=== PATIENT | female | born 1960 | race Caucasian/White ===

== ENCOUNTER → 2018-05-30 19:09 | Outpatient (CLI) | payer MEDICARE ==
[2013-08-03 06:00] VITALS: BMI 48.1
[~2018-05-30 19:09] MED LIST: AMBIEN10 MG PO; ARMOUR THYROID30 MG PO; EVOXAC30 MG PO; LYRICA150 MG PO; MYRBETRIG PO; NEXIUM40 MG PO; NORCO 10/325 TA1 TA1 PO; PHENERGAN25 M1 PO; PLAQUENIL200 MG PO; PROMETRIUM100 MG PO; RESTASIS EYE DR30 EA EACH EYE; STRATTERA80 MG PO; SYMBICORT 80-10.2 GM INH; VITAMIN D2000 UNIT PO; ZANAFLEX4 MG PO; ZANTAC150 MG PO; ZESTORETIC 10/11 TAB PO; ZOLOFT100 MG PO
== END | disposition home or self-care (01) ==
LOC: D.MAMMO 11:15
DX: Z12.31 Encounter for screening mammogram for malignant neoplasm of breast (principal)

== ENCOUNTER 2019-12-17 12:20 | Inpatient (IN) | payer MEDICARE ==
[~2019-12-17] VITALS: Ht 160 cm; Wt 120.2 kg
[2020-02-12] MEDS ORDERED: PEPCID AC20 MG PO (15:42)
[2020-02-12] MEDS ORDERED: AMBIEN10 MG PO (15:42)
[2020-02-12] MEDS ORDERED: ZANAFLEX4 MG PO (15:42)
[2020-02-12] MEDS ORDERED: HYDROXYCHLOROQ200 MG PO (15:43)
[2020-02-12] MEDS ORDERED: LISINOPRIL-HCT1 EAC4 PO (15:43)
[2020-02-12] MEDS ORDERED: FOLATE0.4 MG PO (15:43)
[2020-02-12] MEDS ORDERED: BENTYL 20 MG TA20 MG PO (15:44)
[2020-02-12] MEDS ORDERED: EVOXAC30 MG PO (15:44)
[2020-02-12] MEDS ORDERED: PROTONIX40 MG PO (15:44)
[2020-02-12] MEDS ORDERED: HYDROCODON-ACE1 EA10 PO (15:45)
[2020-02-12] MEDS ORDERED: CALTRATE+D3 PL1 EACH PO (15:46)
[2020-02-12] MEDS ORDERED: VITAMIN B-121000 MCG PO (15:46)
[2020-02-12] MEDS ORDERED: KLONOPIN1 MG PO (15:49)
[2020-02-13 11:50] LABS: ANION GAP 9.8 mmol/L (8-16); CALCIUM 9.5 mg/dL (8.5-10.1); CARBON DIOXIDE 31.7 mmol/L (21.0-32.0); CREATININE - SERUM 1.6 mg/dL (0.6-1.3); POTASSIUM - SERUM 3.5 mmol/L (3.5-5.1)
[2020-02-13 12:00] LABS: BILIRUBIN NEGATIVE (NEGATIVE); GLUCOSE NEGATIVE (NEGATIVE); KETONE NEGATIVE (NEGATIVE); NITRITE NEGATIVE (NEGATIVE); UROBILINOGEN NORMAL (NORMAL)
--- NOTE | 2020-02-13 12:08 | NUR ---
T- 98.0 RR- 16 HR- 74 POX- 94% BP RA- 134/71
[2020-02-13 12:11] LABS: APTT 31.1 SECONDS (22.8-39.4); INR 0.89 (0.85-1.17); PROTIME 12.1 SECONDS (11.6-15.0)
[2020-02-13 12:17] LABS: BASOPHILS 0.5 % (0-2); EOSINOPHILS 1.3 % (0-7); HEMATOCRIT 34.9 % (36.0-48.0); HEMOGLOBIN 10.6 g/dL (12-16); IMMATURE GRANULOCYTES 0.2 % (0-5); LYMPHOCYTES 20.9 % (15-50); MCH 24.9 pg (26.0-34.0); MCHC 30.4 g/dL (31.0-37.0); MCV 81.9 fL (80.0-100.0); MEAN PLATELET VOLUME 9.4 fL (7.4-10.4); NEUTROPHILS 70.1 % (40-80); PLATELET COUNT 363 10x3/uL (130-400); RBC 4.26 10x6/uL (4.00-5.40); RDW 15.5 % (11.5-14.5); WBC 9.5 10x3/uL (4.8-10.8)
[2020-02-19] VITALS (12 sets, daily range): BP systolic 117–150; BP diastolic 56–86; BMI 47.0
[2020-02-19] MEDS ORDERED: PEPCID AC20 MG PO (08:08)
[2020-02-19] MEDS ORDERED: LISINOPRIL-HCT1 EAC4 PO (08:09)
[2020-02-19] MEDS ORDERED: CALTRATE PO (08:10)
[2020-02-19] MEDS ORDERED: MIRALAX17 GM PO (08:12)
--- NOTE | 2020-02-19 10:23 | NUR ---
PLASMA BLADE AND AQUAMANTYS USED. CAUTERY PAD PLACED ON RIGHT THIGH. LOT#[id number] EXP. 04/30/2021. PLASMA BLADE ON SETTING 6/8. AQUAMANTYS SETTING ON 170.
--- NOTE | 2020-02-19 13:00 | NUR ---
PT RECEIVED FROM RECOVERY TO ROOM 1211 VIA BED. ALERT AND ORIENTED. RESP EVEN AND UNLABORED. O2 @ 2L NC IN PLACE. PAIN REPORTED 5/10 AT THIS TIME. IV TO RIGHT HAND WITH 1/2 NS @ 50ML/HR INFUSING VIA PUMP. SITE WITHOUT REDNESS OR EDEMA. PREVENA DRESSING TO LEFT LOWER EXTREMITY INTACT AND TO SUCTIONING. ORIENTED TO BED, CL AND ROOM. DENIES QUESTIONS OR FURTHER NEEDS AT THIS TIME. BED ALARM ON. CL WITHIN REACH. ENCOURAGED TO CALL WITH NEEDS. CONTINUE POC
--- NOTE | 2020-02-19 19:38 | NUR ---
PATIENT RESTING IN BED WITH EYES CLOSED AND NO S/S OF DISTRESS. AT BEDSIDE AND DENIES NEEDS AT THIS TIME. BED IN LOWEST POSITION, CALL LIGHT WITHIN REACH, AND BED ALARM ON. WILL CONTINUE TO MONITOR.
--- NOTE | 2020-02-19 21:51 | NUR ---
ASSISTED PATIENT TO AND FROM RESTROOM. PATIENT VOIDED
--- NOTE | 2020-02-20 00:20 | NUR ---
ADMINISTERED MEDS PER ORDERS. PATIENT DENIES OTHER NEEDS. ENCOURAGED TO CALL, WILL CONTINUE TO MONITOR.
--- NOTE | 2020-02-20 05:10 | NUR ---
PLACED PATIENT ON CPM TO LEFT KNEE
--- NOTE | 2020-02-20 07:29 | OP ---
PATIENT NAME: MARTINA CRANE JANUARY MEDICAL RECORD: [id number] :58 LOCATION:D.M3 D.1211 ADMISSION DATE:02/19/20 SURGEON: LUIS ENRIQUE MCKEON DO DATE OF OPERATION: 02/19/2020 PROCEDURE PERFORMED: Left total knee arthroplasty. PREOPERATIVE DIAGNOSIS: Left knee osteoarthritis. POSTOPERATIVE DIAGNOSIS: Left knee osteoarthritis. INDICATIONS: Ms. Crane is a 59-year-old female who has had left knee pain for quite some time. She started collapse into valgus deformity. She has tried all manner of nonoperative treatments including bracing and injections to no avail. She wants something done surgically. She is tired of it affecting her activities of daily living. She is aware of the risks of the procedure including infection, bleeding, damage to nerves or vessels, need for further surgery, continued pain, loss of motion, failure of implants and blood clots, and even . She signed the consent. SURGEON: Luis Enrique Mckeon DO DESCRIPTION OF PROCEDURE: The patient was taken to the operative suite after given a block by anesthesia in the preoperative area, given 2 grams of Ancef, 80 mg of gentamicin, and a gram of TXA. She was then sedated and LMA was placed. The left lower extremity was then prepped and draped in sterile fashion. Timeout was performed, everyone was in agreement with the correct side, site, patient and procedure. I then marked out an anterior incision, covered in Ioban and made the incision down to the capsule, I did it with fresh 10 blade in medial parapatellar approach and everted the patella and milled it down and then took out the ACL and part of the fat pad. I then flexed the knee up and entered the intramedullary canal and cut the distal femur through the distal femur guide and the proximal tibia was exposed and the menisci were removed and then I off the lateral side due to the valgus deformity, cut the proximal tibia, removed the excess bone for the knee to extension and removed any meniscus that remained. I then put in a 10 extension block, it fit very well. I then flexed up the knee. I measured the femur to be 62.5. A 62.5, 4-in-1 cutting block was then put on and jaylyn wing to ensure no notching and then made the cut and then removed the bone, put on the trial and floated in the tibia with poly and marked the rotation. I then drilled for the patella and lug holes in the femur and exposed the tibia and reamed and punched it, put extra holes in the tibia for the cement mantle. Cement was then mixed, placed in the tibia and on the implant. The implant was impacted into place. Extra cement was removed and then the femur was impacted on and the 10 poly was put in between and brought to the knee into extension. The patella was cleaned off and then cement was put in the patella and on the implant squeezed into place. Excess cement was removed. Once that was completed, a 10% povidone iodine with 500 mL normal saline solution was placed into the knee. The knee was set for 3 minutes. This was then irrigated out with over a liter of normal saline. Then, cement had dried and I trialed the 12 poly, 12 poly fit very well. Decided to go with that one and it was 12, anterior stabilized and then put the locking pin in. I then irrigated one more time and put in Carmen powder and vancomycin and tobramycin powder and closed the capsule with #1 Pops, [id number]. This was also done by Amber Sena, licensed and certified midwife. He also did the skin with 2-0 Vicryl in inverted interrupted fashion and a ZipLine was placed on the knee OPERATIVE REPORT [id number] MARTINA CRANE DANE and then covered with a Prevena Restore and she was then awakened and taken to recovery in stable condition. BLOOD LOSS: Approximately 300 mL. COMPLICATIONS: None. TRANSINT:[id number] Voice Confirmation ID: [id number] DOCUMENT ID: [id number] LUIS ENRIQUE MCKEON DO at 0729 CC: [id number] DICTATION DATE: 02/19/20 1119 TOURIST ADVISER: 02/19/20 1337 ADM IN [facility] [id number] [place] [address]
[2020-02-20 07:47] LABS: HEMATOCRIT 29.5 % (36.0-48.0); HEMOGLOBIN 9.1 g/dL (12-16); LYMPHOCYTES 9.6 % (15-50); MCH 25.1 pg (26.0-34.0); MCHC 30.8 g/dL (31.0-37.0); MCV 81.5 fL (80.0-100.0); MEAN PLATELET VOLUME 9.7 fL (7.4-10.4); NEUTROPHILS 79.9 % (40-80); PLATELET COUNT 267 10x3/uL (130-400); RBC 3.62 10x6/uL (4.00-5.40); RDW 15.5 % (11.5-14.5); WBC 11.3 10x3/uL (4.8-10.8)
[2020-02-20 07:54] VITALS: BP 101/48
[2020-02-20 07:59] LABS: ANION GAP 11.4 mmol/L (8-16); CALCIUM 8.2 mg/dL (8.5-10.1); CARBON DIOXIDE 26.5 mmol/L (21.0-32.0); CREATININE - SERUM 1.6 mg/dL (0.6-1.3); MAGNESIUM - SERUM 1.7 mg/dL (1.8-2.4); POTASSIUM - SERUM 3.9 mmol/L (3.5-5.1)
[2020-02-20 13:46] VITALS: BP 104/39
--- NOTE | 2020-02-20 14:30 | MORECARE ---
CASE MANAGEMENT DISCHARGE SUMMARY PATIENT: MARTINA CRANE UNIT: [id number] ADM DATE: 02/19/20 AGE: 59 : 58 SEX: F ROOM/BED: D.1211 AUTHOR: HAYDEN FARLEY PHYSICIAN: REFERRING PHYSICIAN: LISET MCKEON DO DATE OF SERVICE: 02/20/20 Discharge Plan Patient Name: MARTINA CRANE Facility: [facility]:[place] : 1960 Planned Disposition: Home Health Service Anticipated Discharge Date: 02/22/20 Discharge Date: Expected LOS: 3 Initial Reviewer: [email or web address] Initial Review Date: 02/20/2020 Generated: 02/20/20 3:29 pm Patient Name: MARTINA CRANE Page [id number] at 1430 All edits/amendments must be made on the electronic document DICTATION DATE: 02/20/201428 DIESEL PILE DRIVER OPERATOR: VIRGILIO 02/20/20 142 RPT#: [id number] DC DATE: STATUS: ADM IN [facility] [address] [place] [address] END OF REPORT
--- NOTE | 2020-02-20 14:38 | MORECARE ---
CASE MANAGEMENT DISCHARGE SUMMARY PATIENT: MARTINA CRANE UNIT: [id number] ADM DATE: 02/19/20 AGE: 59 : 58 SEX: F ROOM/BED: D.1211 AUTHOR: HAYDEN FARLEY PHYSICIAN: REFERRING PHYSICIAN: LISET MCKEON DO DATE OF SERVICE: 02/20/20 Discharge Plan Patient Name: MARTINA CRANE Facility: [facility]:[place] : 1960 Planned Disposition: Home Health Service Anticipated Discharge Date: 02/22/20 Discharge Date: Expected LOS: 3 Initial Reviewer: [email or web address] Initial Review Date: 02/20/2020 Generated: 02/20/20 3:38 pm Comments DCP- Discharge Planning Updated by [email or web address]: Mariah Connell on 02/20/20 1:[address] Patient Name: MARTINA CRANE Admission Status: Urgent Accout number: [id number] Admission Date: 02-19-2020 : 1960 Admission Diagnosis: Attending: LISET MCKEON Current LOS: 1 Anticipated DC Date: 02-22-2020 Planned Disposition: Home Health Service Primary Insurance: MEDICARE A & B Discharge Planning Comments: After obtaining verbal consent, CM met with patient and spouse to discuss discharge planning / needs. Patient states she is going to discharge to home Tuesday with home health services. States she has 8 steps and does not want to go to outpatient therapy. Denies any other discharge planning / needs. States home environment is safe. States her will transport her home upon hospital DC. ADAMS explained and signed for [facility] [facility] and [facility]. DC IMM explained and signed. CM will continue to follow and assist as needed with discharge planning / needs. Fishing Line Winding Machine Operator: Mariah Connell DCPIA - Discharge Planning Initial Assessment Updated by [email or web address]: Mariah Connell on 02/20/20 2:30 pm * Is the patient Alert and Oriented? Yes * How many steps to enter\exit or inside your home? 8 w/rails * PCP Kem * Pharmacy [facility] * Preadmission Environment Home with Family * ADLs Independent * Equipment Bedside Commode Rolling Walker * Other Equipment CPM and Cold Therapy Unit * List name and contact numbers for known caregivers / representatives who currently or will assist patient after discharge: Charles Crane, Spouse, * Verbal permission to speak to the caregivers and representatives has been obtained from the patient. Yes * Community resources currently utilized None * Please name any agencies selected above. [facility] * Additional services required to return to the preadmission environment? Yes * Can the patient safely return to the preadmission environment? Yes * Has this patient been hospitalized within the prior 30 days at any hospital? No Coverage Notice Reviewer: ROSETTE Connell Notice Issued Date-Time: 02/20/2020 14:00 Notice Type: IM Discharge Notice Notice Delivered To: Patient Relationship to Patient: Self Chin Strap Sewer Name: Delivery Method: HAND - Hand Delivered Elaina Days: Prior Verbal Notification: Recipient Understood Notice: Yes Recipient Signature: Yes Med Rec Note Co-signed by Attending: Coverage Notice Comment: Reviewer: ROSETTE Connell Notice Issued Date-Time: 02/20/2020 14:00 Notice Type: Patient Choice Letter Notice Delivered To: Patient Relationship to Patient: Self Chin Strap Sewer Name: Delivery Method: HAND - Hand Delivered Elaina Days: Prior Verbal Notification: Recipient Understood Notice: Yes Recipient Signature: Yes Med Rec Note Co-signed by Attending: Coverage Notice Comment: Last DP export: 02/20/20 1:30 p Patient Name: MARTINA CRANE Page [id number] at 1438 All edits/amendments must be made on the electronic document DICTATION DATE: 02/20/208 FACILITY EXAMINER: VIRGILIO 02/20/20 1438 RPT#: [id number] DC DATE: STATUS: ADM IN [facility] [address] [place] [address] END OF REPORT
--- NOTE | 2020-02-20 14:46 | MORECARE ---
CASE MANAGEMENT DISCHARGE SUMMARY PATIENT: MARTINA CRANE UNIT: [id number] ADM DATE: 02/19/20 AGE: 59 : 58 SEX: F ROOM/BED: D.1211 AUTHOR: HAYDEN FARLEY PHYSICIAN: REFERRING PHYSICIAN: LISET MCKEON DO DATE OF SERVICE: 02/20/20 Discharge Plan Patient Name: MARTINA CRANE Facility: [facility]:[place] : 1960 Planned Disposition: Home Health Service Anticipated Discharge Date: 02/22/20 Discharge Date: Expected LOS: 3 Initial Reviewer: [email or web address] Initial Review Date: 02/20/2020 Generated: 02/20/20 3:46 pm Comments DCP- Discharge Planning Updated by [email or web address]: Mariah Connell on 02/20/20 1:[address] Patient Name: MARTINA CRANE Admission Status: Urgent Accout number: [id number] Admission Date: 02-19-2020 : 1960 Admission Diagnosis: Attending: LISET MCKEON Current LOS: 1 Anticipated DC Date: 02-22-2020 Planned Disposition: Home Health Service Primary Insurance: MEDICARE A & B Discharge Planning Comments: After obtaining verbal consent, CM met with patient and spouse to discuss discharge planning / needs. Patient states she is going to discharge to home Tuesday with home health services. States she has 8 steps and does not want to go to outpatient therapy. Denies any other discharge planning / needs. States home environment is safe. States her will transport her home upon hospital DC. ADAMS explained and signed for [facility] [facility] and [facility]. DC IMM explained and signed. CM will continue to follow and assist as needed with discharge planning / needs. Bead Cutter: Mariah Connell DCPIA - Discharge Planning Initial Assessment Updated by [email or web address]: Mariah Connell on 02/20/20 2:30 pm * Is the patient Alert and Oriented? Yes * How many steps to enter\exit or inside your home? 8 w/rails * PCP Kem * Pharmacy [facility] * Preadmission Environment Home with Family * ADLs Independent * Equipment Bedside Commode Rolling Walker * Other Equipment CPM and Cold Therapy Unit * List name and contact numbers for known caregivers / representatives who currently or will assist patient after discharge: Charles Crane, Spouse, * Verbal permission to speak to the caregivers and representatives has been obtained from the patient. Yes * Community resources currently utilized None * Please name any agencies selected above. [facility] * Additional services required to return to the preadmission environment? Yes * Can the patient safely return to the preadmission environment? Yes * Has this patient been hospitalized within the prior 30 days at any hospital? No External Providers External Provider: Toopher Next Contact Date: Service Request Date: Service Type: Resolution: Reviewer: Comments: Coverage Notice Reviewer: [email or web address] Connell Notice Issued Date-Time: 02/20/2020 14:00 Notice Type: IM Discharge Notice Notice Delivered To: Patient Relationship to Patient: Self Arbor Press Operator Name: Delivery Method: HAND - Hand Delivered Elaina Days: Prior Verbal Notification: Recipient Understood Notice: Yes Recipient Signature: Yes Med Rec Note Co-signed by Attending: Coverage Notice Comment: Reviewer: [id number] Connell Notice Issued Date-Time: 02/20/2020 14:00 Notice Type: Patient Choice Letter Notice Delivered To: Patient Relationship to Patient: Self Arbor Press Operator Name: Delivery Method: HAND - Hand Delivered Elaina Days: Prior Verbal Notification: Recipient Understood Notice: Yes Recipient Signature: Yes Med Rec Note Co-signed by Attending: Coverage Notice Comment: Last DP export: 02/20/20 1:38 p Patient Name: MARTINA CRANE Page [phone] at 1446 All edits/amendments must be made on the electronic document DICTATION DATE: 02/20/20 1446 [facility] TECHNICIAN: VIRGILIO 02/20/20 1446 RPT#: [id number] DC DATE: STATUS: ADM IN [facility] [address] [place] [address] END OF REPORT
--- NOTE | 2020-02-20 14:54 | MORECARE ---
CASE MANAGEMENT DISCHARGE SUMMARY PATIENT: MARTINA CRANE UNIT: [id number] ADM DATE: 02/19/20 AGE: 59 : 58 SEX: F ROOM/BED: D.1211 AUTHOR: HAYDEN FARLEY PHYSICIAN: REFERRING PHYSICIAN: LISET MCKEON DO DATE OF SERVICE: 02/20/20 Discharge Plan Patient Name: MARTINA CRANE Facility: [facility]:[place] : 1960 Planned Disposition: Home Health Service Anticipated Discharge Date: 02/22/20 Discharge Date: Expected LOS: 3 Initial Reviewer: [id number] Initial Review Date: 02/20/2020 Generated: 02/20/20 3:54 pm Comments DCP- Discharge Planning Updated by [email or web address]: Mariah Connell on 02/20/20 1:[address] Patient Name: MARTINA CRANE Admission Status: Urgent Accout number: [id number] Admission Date: 02-19-2020 : 1960 Admission Diagnosis: Attending: LISET MCKEON Current LOS: 1 Anticipated DC Date: 02-22-2020 Planned Disposition: Home Health Service Primary Insurance: MEDICARE A & B Discharge Planning Comments: After obtaining verbal consent, CM met with patient and spouse to discuss discharge planning / needs. Patient states she is going to discharge to home Tuesday with home health services. States she has 8 steps and does not want to go to outpatient therapy. Denies any other discharge planning / needs. States home environment is safe. States her will transport her home upon hospital DC. ADAMS explained and signed for [facility] and [facility]. DC IMM explained and signed. CM will continue to follow and assist as needed with discharge planning / needs. Called Dereck with [facility] with referral. Informed of anticipated DC from hospital Tuesday. Will need home health admission Tuesday. Dereck stated the patient will be admitted to home health Tuesday. Faxed records as requested. Theatre Instructor: Mariah Connell DCPIA - Discharge Planning Initial Assessment Updated by [email or web address]: Mariah Connell on 02/20/20 2:30 pm * Is the patient Alert and Oriented? Yes * How many steps to enter\exit or inside your home? 8 w/rails * PCP Kem * Pharmacy [facility] * Preadmission Environment Home with Family * ADLs Independent * Equipment Bedside Commode Rolling Walker * Other Equipment CPM and Cold Therapy Unit * List name and contact numbers for known caregivers / representatives who currently or will assist patient after discharge: Charles Crane, Spouse, * Verbal permission to speak to the caregivers and representatives has been obtained from the patient. Yes * Community resources currently utilized None * Please name any agencies selected above. [facility] * Additional services required to return to the preadmission environment? Yes * Can the patient safely return to the preadmission environment? Yes * Has this patient been hospitalized within the prior 30 days at any hospital? No Coverage Notice Reviewer: ROSETTE Connell Notice Issued Date-Time: 02/20/2020 14:00 Notice Type: IM Discharge Notice Notice Delivered To: Patient Relationship to Patient: Self Search Engine Optimizer Name: Delivery Method: HAND - Hand Delivered Elaina Days: Prior Verbal Notification: Recipient Understood Notice: Yes Recipient Signature: Yes Med Rec Note Co-signed by Attending: Coverage Notice Comment: Reviewer: ROSETTE Connell Notice Issued Date-Time: 02/20/2020 14:00 Notice Type: Patient Choice Letter Notice Delivered To: Patient Relationship to Patient: Self Search Engine Optimizer Name: Delivery Method: HAND - Hand Delivered Elaina Days: Prior Verbal Notification: Recipient Understood Notice: Yes Recipient Signature: Yes Med Rec Note Co-signed by Attending: Coverage Notice Comment: Last DP export: 02/20/20 1:46 p Patient Name: MARTINA CRANE Page [phone] at 1454 All edits/amendments must be made on the electronic document DICTATION DATE: 02/20/20 1454 HERBOLOGIST: VIRGILIO 02/20/20 1454 RPT#: [id number] DC DATE: STATUS: ADM IN [facility] [address] [place] [address] END OF REPORT
[2020-02-20 20:00] VITALS: BP 131/57
--- NOTE | 2020-02-20 22:16 | NUR ---
ALERT RESTING IN BED CPM IN USE, REPORTS SOME PAIN TO KNEE BUT NOT TO BAD, SEE SHIFT ASSESSMENT, WOUND VAC IN USE TO LEFT KNEE, CALL LIGHT IN REACH
[2020-02-21] VITALS (7 sets, daily range): BP systolic 93–162; BP diastolic 39–72
[2020-02-21 05:11] LABS: HEMATOCRIT 25.7 % (36.0-48.0); LYMPHOCYTES 19.4 % (15-50); MCHC 31.1 g/dL (31.0-37.0); MCV 80.3 fL (80.0-100.0); MEAN PLATELET VOLUME 9.7 fL (7.4-10.4); NEUTROPHILS 68.5 % (40-80); PLATELET COUNT 256 10x3/uL (130-400); RDW 15.6 % (11.5-14.5); WBC 10.7 10x3/uL (4.8-10.8)
[2020-02-21 05:25] LABS: ANION GAP 9.6 mmol/L (8-16); CALCIUM 8.1 mg/dL (8.5-10.1); CARBON DIOXIDE 27.9 mmol/L (21.0-32.0); MAGNESIUM - SERUM 1.8 mg/dL (1.8-2.4); POTASSIUM - SERUM 3.5 mmol/L (3.5-5.1)
[2020-02-21 05:28] LABS: CREATININE - SERUM 2.4 mg/dL (0.6-1.3)
--- NOTE | 2020-02-21 09:38 | NUR ---
PT ALERT X 4. BREATH SOUNDS CLEAR BILAT. IV TO RIGHT HAND, PATENT, DRESSING CDI. SALLY TO LEFT KNEE CDI. PT REPORTING PAIN OF 5/10, BP TOO LOW FOR PAIN MEDICATION AT THIS TIME, WILL CONTINUE TO MONITOR. BED LOW, CALL LIGHT IN REACH. NO OTHER NEEDS AT THIS TIME.
--- NOTE | 2020-02-21 19:27 | NUR ---
DR GAO HERE TO SEE PT INFORMED OF LOW NA AND LOW BP AND DECREASED URINE OUT PUT TODAY, HAS RECIEVED 1 L NS BOLUS AND REPORTS INCREASED URINE OUTPUT SINCE BOLUS, ENCOURAGED PT TO DRINK ENSURE AND LESS JUICE AND NO FREE WATER, ENCOURAGED TO TAKE LITTLE PAIN MEDS POSSIABLE SINCE HAS HAD NO BM SINCE SURGERY, PT AND VERBALIZE UNDERSTANDING, ORDERS RECIEVED TO DC HCTZ, ZESTERIL, AND AMBIEN, AND TO START NS AT 100CC/HR
[2020-02-22 03:15] VITALS: BP 96/50
[2020-02-22 06:03] VITALS: BP 99/55
[2020-02-22 07:03] LABS: HEMATOCRIT 25.7 % (36.0-48.0); HEMOGLOBIN 7.9 g/dL (12-16); MCH 24.7 pg (26.0-34.0); MCHC 30.7 g/dL (31.0-37.0); MCV 80.3 fL (80.0-100.0); MEAN PLATELET VOLUME 9.8 fL (7.4-10.4); NEUTROPHILS 66.1 % (40-80); PLATELET COUNT 265 10x3/uL (130-400); RDW 15.8 % (11.5-14.5); WBC 9.9 10x3/uL (4.8-10.8)
[2020-02-22 07:21] LABS: ANION GAP 10.7 mmol/L (8-16); CALCIUM 8.4 mg/dL (8.5-10.1); CARBON DIOXIDE 26.8 mmol/L (21.0-32.0); CREATININE - SERUM 2.1 mg/dL (0.6-1.3); MAGNESIUM - SERUM 1.8 mg/dL (1.8-2.4); POTASSIUM - SERUM 3.5 mmol/L (3.5-5.1)
--- NOTE | 2020-02-22 07:55 | NUR ---
PATIENT IN BED WITH EYES CLOSED RESTING QUIETLY. CPM ON. WOUND VAC INTACT. IV NTACT. CALL LIGHT WITHIN REACH.
--- NOTE | 2020-02-22 08:09 | NUR ---
CPM OFF/. ASSISTED PATIENT TO BR AT THIS TIME. NO PROBLEMS. STATED IS HAVING PAIN. WILL GIVE PAIN MED WHEN BACK TO BED. VERBALIZED UNDERSTANDING.
[2020-02-22 08:45] VITALS: BP 105/43
--- NOTE | 2020-02-22 08:45 | NUR ---
PATIENT IV LEAKING. REMOVED WITH CATH TIP INTACT. NO COMPLAINTS OR SIGNS OF DISTRESS. PATIENT WANTS TO WAIT TO SEE IF SHE CAN LEAVE IV OUT PER PHYSICIAN BEFORE RESTARTING. CALLL YAT WITHIN REACH.
--- NOTE | 2020-02-22 11:00 | NUR ---
PATIENT SITTING UP IN CHAIR AT THIS TIME. NO COMPLAINTS OR SIGNS OF DISTRESS. WOUND VAC INTACT. CALL LIGHT WITHIN REACH. AMBULATED WITH PT WITH NO PROBLEMS.
[2020-02-22 12:20] VITALS: BP 123/54
--- NOTE | 2020-02-22 12:30 | NUR ---
OK TO LEAVE IV OUT FOR NOW PER NEPHROLOGY. PATIENT NEEDS TO DRINK PLENTY OF FLUIDS. INCREASE SALT INTAKE. PATIENT VERBALIZED UNDERSTANDING.
--- NOTE | 2020-02-22 14:31 | MORECARE ---
CASE MANAGEMENT DISCHARGE SUMMARY PATIENT: MARTINA CRANE UNIT: [id number] ADM DATE: 02/19/20 AGE: 59 : 58 SEX: F ROOM/BED: D.1211 AUTHOR: HAYDEN FARLEY PHYSICIAN: REFERRING PHYSICIAN: LISET MCKEON DO DATE OF SERVICE: 02/22/20 Discharge Plan Patient Name: MARTINA CRANE Facility: [facility]:[place] : 1960 Planned Disposition: Home Health Service Anticipated Discharge Date: 02/22/20 Discharge Date: Expected LOS: 3 Initial Reviewer: [id number] Initial Review Date: 02/20/2020 Generated: 02/22/20 3:31 pm Comments DCP- Discharge Planning Updated by [email or web address]: Mariah Connell on 02/22/20 1:[address] CM called and informed Ray with [employer] that hospital discharge has been moved to Tuesday and need home health admit on Tuesday. Dereck stated he would let the home health agency know. DCP- Discharge Planning Updated by [email or web address]: Mariah Connell on 02/20/20 1:[address] Patient Name: MARTINA CRANE Admission Status: Urgent Accout number: [id number] Admission Date: 02-19-2020 : 1960 Admission Diagnosis: Attending: LISET MCKEON Current LOS: 1 Anticipated DC Date: 02-22-2020 Planned Disposition: Home Health Service Primary Insurance: MEDICARE A & B Discharge Planning Comments: After obtaining verbal consent, CM met with patient and spouse to discuss discharge planning / needs. Patient states she is going to discharge to home Tuesday with home health services. States she has 8 steps and does not want to go to outpatient therapy. Denies any other discharge planning / needs. States home environment is safe. States her will transport her home upon hospital DC. ADAMS explained and signed for [facility] and [facility]. DC IMM explained and signed. CM will continue to follow and assist as needed with discharge planning / needs. Called Ray with [facility] with referral. Informed of anticipated DC from hospital Tuesday. Will need home health admission Tuesday. Dereck stated the patient will be admitted to home health Tuesday. Faxed records as requested. Supervisor Acoustical Tile Carpenters: Mariah Connell DCPIA - Discharge Planning Initial Assessment Updated by [email or web address]: Mariah Connell on 02/20/20 2:30 pm * Is the patient Alert and Oriented? Yes * How many steps to enter\exit or inside your home? 8 w/rails * PCP Kem * Pharmacy [facility] * Preadmission Environment Home with Family * ADLs Independent * Equipment Bedside Commode Rolling Walker * Other Equipment CPM and Cold Therapy Unit * List name and contact numbers for known caregivers / representatives who currently or will assist patient after discharge: Charles Crane, Spouse, * Verbal permission to speak to the caregivers and representatives has been obtained from the patient. Yes * Community resources currently utilized None * Please name any agencies selected above. [facility] * Additional services required to return to the preadmission environment? Yes * Can the patient safely return to the preadmission environment? Yes * Has this patient been hospitalized within the prior 30 days at any hospital? No Coverage Notice Reviewer: [id number] Stone Connell Notice Issued Date-Time: 02/20/2020 14:00 Notice Type: IM Discharge Notice Notice Delivered To: Patient Relationship to Patient: Self Channel Lip Stiffener Insoles Name: Delivery Method: HAND - Hand Delivered Elaina Days: Prior Verbal Notification: Recipient Understood Notice: Yes Recipient Signature: Yes Med Rec Note Co-signed by Attending: Coverage Notice Comment: Reviewer: [email or web address] Stone Connell Notice Issued Date-Time: 02/20/2020 14:00 Notice Type: Patient Choice Letter Notice Delivered To: Patient Relationship to Patient: Self Channel Lip Stiffener Insoles Name: Delivery Method: HAND - Hand Delivered Elaina Days: Prior Verbal Notification: Recipient Understood Notice: Yes Recipient Signature: Yes Med Rec Note Co-signed by Attending: Coverage Notice Comment: Last DP export: 02/20/20 1:54 p Patient Name: MARTINA CRANE Page [phone] at 1431 All edits/amendments must be made on the electronic document DICTATION DATE: 02/22/20 1431 RETAINING ROOM CUTTER: VIRGILIO 02/22/20 1431 RPT#: [id number] [place] DATE: STATUS: ADM IN [facility] [address] [place] [address] END OF REPORT
--- NOTE | 2020-02-22 15:03 | MORECARE ---
CASE MANAGEMENT DISCHARGE SUMMARY PATIENT: MARTINA CRANE UNIT: [id number] ADM DATE: 02/19/20 AGE: 59 : 58 SEX: F ROOM/BED: D.1211 AUTHOR: HAYDEN FARLEY PHYSICIAN: REFERRING PHYSICIAN: LISET MCKEON DO DATE OF SERVICE: 02/22/20 Discharge Plan Patient Name: MARTINA CRANE Facility: [facility]:[place] : 1960 Planned Disposition: Home Health Service Anticipated Discharge Date: 02/22/20 Discharge Date: Expected LOS: 3 Initial Reviewer: [email or web address] Initial Review Date: 02/20/2020 Generated: 02/22/20 4:02 pm Comments DCP- Discharge Planning Updated by [email or web address]: Mariah Connell on 02/22/20 1:[address] CM informed patient that [facility] had been notified of anticipated discharge Tuesday and agency will admit patient to home health Tuesday. Patient verbalized understanding and satisfaction with discharge plans. DC IMM explained and signed copy to chart. DCP- Discharge Planning Updated by [email or web address]: Mariah Connell on 02/22/20 1:[address] CM called and informed Ray with [facility] that hospital discharge has been moved to Tuesday and need home health admit on Tuesday. Ray stated he would let the home health agency know. DCP- Discharge Planning Updated by [email or web address]: Mariah Connell on 02/20/20 1:[address] Patient Name: MARTINA CRANE Admission Status: Urgent Accout number: [id number] Admission Date: 02-19-2020 : 1960 Admission Diagnosis: Attending: LISET MCKEON Current LOS: 1 Anticipated DC Date: 02-22-2020 Planned Disposition: Home Health Service Primary Insurance: MEDICARE A & B Discharge Planning Comments: After obtaining verbal consent, CM met with patient and spouse to discuss discharge planning / needs. Patient states she is going to discharge to home Tuesday with home health services. States she has 8 steps and does not want to go to outpatient therapy. Denies any other discharge planning / needs. States home environment is safe. States her will transport her home upon hospital DC. ADAMS explained and signed for [facility] and [facility]. DC IMM explained and signed. CM will continue to follow and assist as needed with discharge planning / needs. Called Dereck with [facility] with referral. Informed of anticipated DC from hospital Tuesday. Will need home health admission Tuesday. Dereck stated the patient will be admitted to home health Tuesday. Faxed records as requested. Hotel Registration Clerk: Mariah Connell DCPIA - Discharge Planning Initial Assessment Updated by [email or web address]: Mariah Connell on 02/20/20 2:30 pm * Is the patient Alert and Oriented? Yes * How many steps to enter\exit or inside your home? 8 w/rails * PCP Kem * Pharmacy [facility] * Preadmission Environment Home with Family * ADLs Independent * Equipment Bedside Commode Rolling Walker * Other Equipment CPM and Cold Therapy Unit * List name and contact numbers for known caregivers / representatives who currently or will assist patient after discharge: Charles Crane, Spouse, * Verbal permission to speak to the caregivers and representatives has been obtained from the patient. Yes * Community resources currently utilized None * Please name any agencies selected above. [facility] * Additional services required to return to the preadmission environment? Yes * Can the patient safely return to the preadmission environment? Yes * Has this patient been hospitalized within the prior 30 days at any hospital? No Coverage Notice Reviewer: ROSETTE Connell Notice Issued Date-Time: 02/20/2020 14:00 Notice Type: IM Discharge Notice Notice Delivered To: Patient Relationship to Patient: Self Mammography Supervisor Name: Delivery Method: HAND - Hand Delivered Elaina Days: Prior Verbal Notification: Recipient Understood Notice: Yes Recipient Signature: Yes Med Rec Note Co-signed by Attending: Coverage Notice Comment: Reviewer: ROSETTE Connell Notice Issued Date-Time: 02/20/2020 14:00 Notice Type: Patient Choice Letter Notice Delivered To: Patient Relationship to Patient: Self Mammography Supervisor Name: Delivery Method: HAND - Hand Delivered Elaina Days: Prior Verbal Notification: Recipient Understood Notice: Yes Recipient Signature: Yes Med Rec Note Co-signed by Attending: Coverage Notice Comment: Reviewer: ROSETTE Connell Notice Issued Date-Time: 02/22/2020 14:35 Notice Type: IM Discharge Notice Notice Delivered To: Patient Relationship to Patient: Self Mammography Supervisor Name: Delivery Method: HAND - Hand Delivered Elaina Days: Prior Verbal Notification: Recipient Understood Notice: Yes Recipient Signature: Yes Med Rec Note Co-signed by Attending: Coverage Notice Comment: Last DP export: 02/22/20 1:31 p Patient Name: MARTINA CRANE Page [id number] at 1503 All edits/amendments must be made on the electronic document DICTATION DATE: 02/22/201501 ASSISTANT FACILITY MANAGER: VIRGILIO 02/22/20 1502 RPT#: [id number] DC DATE: STATUS: ADM IN [facility] [address] [place] [address] END OF REPORT
[2020-02-22 16:05] VITALS: Ht 160 cm; Wt 120.2 kg
--- NOTE | 2020-02-22 16:18 | NUR ---
REPORT GIVEN TO SHARIFA WASHINGTON. PATIENT TAKEN TO [id number].
[2020-02-22 17:13] VITALS: BP 151/45
--- NOTE | 2020-02-22 20:00 | NUR ---
PATIENT RESTING IN BED WATCHING TV WITH AT BEDSIDE. NO S/S OF ACUTE DISTRESS. NO C/O AT THIS TIME. PATIENT HAS NO IV ACCESS AT THIS TIME. PATIENT LEFT KNEE HAS WOUND VAC TO IT, DRESSING C/D/I. PATIENT HAS CPM. PATIENT IS UP WITH ASSIST AND WALKER TO THE BATHROOM. CALL LIGHT WITHIN REACH. WILL CONTINUE TO MONITOR.
[2020-02-22 20:44] VITALS: BP 116/50
[2020-02-23 00:48] VITALS: BP 121/52
[2020-02-23 04:00] VITALS: BP 118/64
--- NOTE | 2020-02-23 04:35 | NUR ---
I have reviewed this patient and I concur with the Shift Assessment completed by the Licensed Practical Nurse today this shift.
[2020-02-23 06:01] LABS: BASOPHILS 0.3 % (0-2); EOSINOPHILS 1.7 % (0-7); IMMATURE GRANULOCYTES 0.4 % (0-5); LYMPHOCYTES 20.6 % (15-50); MCH 24.7 pg (26.0-34.0); MCHC 30.4 g/dL (31.0-37.0); MCV 81.3 fL (80.0-100.0); MEAN PLATELET VOLUME 9.5 fL (7.4-10.4); MONOCYTES 11.1 % (2-11); NEUTROPHILS 65.9 % (40-80); PLATELET COUNT 267 10x3/uL (130-400); RBC 2.83 10x6/uL (4.00-5.40); RDW 16.2 % (11.5-14.5)
[2020-02-23 07:04] LABS: ALBUMIN 2.3 g/dL (3.4-5.0); ALKALINE PHOSPHATASE 98 U/L (30-120); ALT (SGPT) 12 U/L (10-68); BILIRUBIN - TOTAL 0.38 mg/dL (0.2-1.3); CALC OSMOLALITY 274 mosm/kg (275-300); CALCIUM 8.8 mg/dL (8.5-10.1); CARBON DIOXIDE 27.6 mmol/L (21.0-32.0); CHLORIDE - SERUM 102 mmol/L (98-107); CREATINE KINASE 375 UL (21-215); CREATININE - SERUM 1.6 mg/dL (0.6-1.3); GLUCOSE 99 mg/dL (74-106); LDH 221 U/L (81-234); POTASSIUM - SERUM 3.7 mmol/L (3.5-5.1); PROTEIN - SERUM 5.3 g/dL (6.4-8.2); SODIUM 136 mmol/L (136-145); UREA NITROGEN 21 mg/dL (7-18); eGFR NON AFRICAN AMERICAN 35 mL/min (90-120)
[2020-02-23 07:07] LABS: CKMB 1.9 U/L (0.0-3.6)
[2020-02-23] MEDS ORDERED: ELIQUIS5 MG PO (09:42)
[2020-02-23] MEDS ORDERED: PERCOCET 5-3251 TAB PO (09:42)
[2020-02-23 10:08] VITALS: BP 147/64
--- NOTE | 2020-02-23 10:59 | NUR ---
PT ALERT X 4. BREATH SOUNDS CLEAR BILAT. NO IV ACCESS AT THIS TIME. PT REFUSED MEDICATIONS AT THIS TIME, WILL TAKE HOME MEDS. DISCHARGE PAPERWORK SIGNED, ALL QUESTIONS ANSWERED. CHARI RUSSO'Giuseppe, DRESSING CHANGED PER ORDERS. ESCORTED OUT VIA WHEELCHAIR.
--- NOTE | 2020-02-24 19:07 | MORECARE ---
CASE MANAGEMENT DISCHARGE SUMMARY PATIENT: MARTINA CRANE UNIT: [id number] ADM DATE: 02/19/20 AGE: 59 : 58 SEX: F ROOM/BED: D.8866 AUTHOR: HAYDEN FARLEY PHYSICIAN: REFERRING PHYSICIAN: LISET MCKEON DO DATE OF SERVICE: 02/24/20 Discharge Plan Patient Name: MARTINA CRANE Facility: [facility]:[place] : 1960 Planned Disposition: Home Health Service Anticipated Discharge Date: 02/22/20 Discharge Date: 02/23/2020 Expected LOS: 3 Initial Reviewer: [email or web address] Initial Review Date: 02/20/2020 Generated: 02/24/20 8:06 pm Comments DCP- Discharge Planning Updated by [email or web address]: Mariah Connell on 02/22/20 1:[address] CM informed patient that [facility] had been notified of anticipated discharge Tuesday and agency will admit patient to home health Tuesday. Patient verbalized understanding and satisfaction with discharge plans. DC IMM explained and signed copy to chart. DCP- Discharge Planning Updated by [email or web address]: Mariah Connell on 02/22/20 1:[address] CM called and informed Ray with [facility] that hospital discharge has been moved to Tuesday and need home health admit on Tuesday. Dereck stated he would let the home health agency know. DCP- Discharge Planning Updated by [email or web address]: Mariah Connell on 02/20/20 1:[address] Patient Name: MARTINA CRANE Admission Status: Urgent Accout number: [id number] Admission Date: 02-19-2020 : 1960 Admission Diagnosis: Attending: LISET MCKEON Current LOS: 1 Anticipated DC Date: 02-22-2020 Planned Disposition: Home Health Service Primary Insurance: MEDICARE A & B Discharge Planning Comments: After obtaining verbal consent, CM met with patient and spouse to discuss discharge planning / needs. Patient states she is going to discharge to home Tuesday with home health services. States she has 8 steps and does not want to go to outpatient therapy. Denies any other discharge planning / needs. States home environment is safe. States her will transport her home upon hospital DC. ADAMS explained and signed for [facility] and [facility]. DC IMM explained and signed. CM will continue to follow and assist as needed with discharge planning / needs. Called Dereck with [facility] with referral. Informed of anticipated DC from hospital Tuesday. Will need home health admission Tuesday. Dereck stated the patient will be admitted to home health Tuesday. Faxed records as requested. Multi Site Leasing Consultant: Mariah Connell DCPIA - Discharge Planning Initial Assessment Updated by [email or web address]: Mariah Connell on 02/20/20 2:30 pm * Is the patient Alert and Oriented? Yes * How many steps to enter\exit or inside your home? 8 w/rails * PCP Kem * Pharmacy [facility] * Preadmission Environment Home with Family * ADLs Independent * Equipment Bedside Commode Rolling Walker * Other Equipment CPM and Cold Therapy Unit * List name and contact numbers for known caregivers / representatives who currently or will assist patient after discharge: Charles Crane, Spouse, * Verbal permission to speak to the caregivers and representatives has been obtained from the patient. Yes * Community resources currently utilized None * Please name any agencies selected above. [facility] * Additional services required to return to the preadmission environment? Yes * Can the patient safely return to the preadmission environment? Yes * Has this patient been hospitalized within the prior 30 days at any hospital? No Coverage Notice Reviewer: ROSETTE Connell Notice Issued Date-Time: 02/20/2020 14:00 Notice Type: IM Discharge Notice Notice Delivered To: Patient Relationship to Patient: Self Venereal Disease Control Head Name: Delivery Method: HAND - Hand Delivered Elaina Days: Prior Verbal Notification: Recipient Understood Notice: Yes Recipient Signature: Yes Med Rec Note Co-signed by Attending: Coverage Notice Comment: Reviewer: ROSETTE Connell Notice Issued Date-Time: 02/20/2020 14:00 Notice Type: Patient Choice Letter Notice Delivered To: Patient Relationship to Patient: Self Venereal Disease Control Head Name: Delivery Method: HAND - Hand Delivered Elaina Days: Prior Verbal Notification: Recipient Understood Notice: Yes Recipient Signature: Yes Med Rec Note Co-signed by Attending: Coverage Notice Comment: Reviewer: ROSETTE Connell Notice Issued Date-Time: 02/22/2020 14:35 Notice Type: IM Discharge Notice Notice Delivered To: Patient Relationship to Patient: Self Venereal Disease Control Head Name: Delivery Method: HAND - Hand Delivered Elaina Days: Prior Verbal Notification: Recipient Understood Notice: Yes Recipient Signature: Yes Med Rec Note Co-signed by Attending: Coverage Notice Comment: Last DP export: 02/22/20 2:03 p Patient Name: MARTINA CRANE Page [id number] at 1907 All edits/amendments must be made on the electronic document DICTATION DATE: 02/24/201905 FISHERIES TECHNICAL OFFICER: VIRGILIO 02/24/201905 RPT#: [id number] DC DATE:02/23/20 STATUS: DIS IN [facility] [address] [place] [address] END OF REPORT
== END 2020-02-23 11:08 | disposition home health service (06) | DRG 470 ==
LOC: D.M3 02-19 07:43 → D.MS 02-19 07:43 → D.SDCHOLD 02-19 07:43 → D.M3 02-19 12:06 → D.MS 02-22 16:52
PROVIDERS: Family Medicine; Internal Medicine Nephrology; ADMIT Orthopaedic Surgery; ATTEND Orthopaedic Surgery
PROC: 0SRD0J9 Replacement of Left Knee Joint with Synthetic Substitute, Cemented, Open Approach (ICD-10-PCS; principal; 2020-02-19 09:15)
DX: M17.12 Unilateral primary osteoarthritis, left knee (principal); N17.9 Acute kidney failure, unspecified; D50.9 Iron deficiency anemia, unspecified; M32.9 Systemic lupus erythematosus, unspecified; K21.9 Gastro-esophageal reflux disease without esophagitis; E55.9 Vitamin D deficiency, unspecified; F41.8 Other specified anxiety disorders; M35.00 Sjogren syndrome, unspecified; I10 Essential (primary) hypertension

== ENCOUNTER → 2019-12-17 17:48 | Outpatient (CLI) | payer MEDICARE ==
[2013-08-03 06:00] VITALS: BMI 48.1
== END | disposition home or self-care (01) ==
LOC: D.LABREF 17:48
PROVIDERS: ATTEND Orthopaedic Surgery
DX: M17.12 Unilateral primary osteoarthritis, left knee (principal)

== ENCOUNTER → 2020-02-25 22:37 | Outpatient (CLI) | payer MEDICARE ==
[2020-02-22 16:05] VITALS: BMI 46.9
[~2020-02-25 22:37] MED LIST changes: +BENTYL 20 MG TA20 MG PO; +CALTRATE PO; +CALTRATE+D3 PL1 EACH PO; +ELIQUIS5 MG PO; +FOLATE0.4 MG PO; +HYDROCODON-ACE1 EA10 PO; +HYDROXYCHLOROQ200 MG PO; +KLONOPIN1 MG PO; +LISINOPRIL-HCT1 EAC4 PO; +MIRALAX17 GM PO; +PEPCID AC20 MG PO; +PERCOCET 5-3251 TAB PO; +PROTONIX40 MG PO; +VITAMIN B-121000 MCG PO
[2020-02-25 23:33] LABS: HEMATOCRIT 26.3 % (36.0-48.0); HEMOGLOBIN 8.1 g/dL (12-16); LYMPHOCYTES 21.3 % (15-50); MCH 25.6 pg (26.0-34.0); MCHC 30.8 g/dL (31.0-37.0); MCV 83.2 fL (80.0-100.0); MEAN PLATELET VOLUME 9.6 fL (7.4-10.4); NEUTROPHILS 64.3 % (40-80); RBC 3.16 10x6/uL (4.00-5.40); RDW 16.4 % (11.5-14.5); WBC 8.3 10x3/uL (4.8-10.8)
[2020-02-25 23:34] LABS: PLATELET COUNT 350 10x3/uL (130-400)
== END | disposition home or self-care (01) ==
LOC: D.LABREF 22:37
PROVIDERS: ATTEND Orthopaedic Surgery
DX: Z47.1 Aftercare following joint replacement surgery (principal)

== ENCOUNTER → 2021-01-22 11:08 | Outpatient (CLI) | payer MEDICARE ==
[2020-02-22 16:05] VITALS: BMI 46.9
== END | disposition home or self-care (01) ==
LOC: D.MRI 11:00
PROVIDERS: ATTEND Nurse Practitioner Family
DX: S82.54XA Nondisplaced fracture of medial malleolus of right tibia, initial encounter for closed fracture (principal)